=== PATIENT | female | born 1990 | race Caucasian/White ===

== ENCOUNTER 2019-09-28 09:04 | Day surgery (SDC) | payer OTHER, SELFPAY ==
--- NOTE | 2019-09-27 11:26 | PCM.HP.BLA ---
History and Physical Date of Admission: 09/28/19 Marisel Cheney 1990 ? ? REFERRING PHYSICIAN: MD Yadiel ? CHIEF COMPLAINT: Abdominal pain ? HPI: The patient is a 28 year old female presents with right upper quadrant abdominal pain. This has been going on for about two months. Denies fevers. Described as intermittent sharp pains, usually a constant ache. Also accompanied with nausea, but denies emesis. Denies constipation or diarrhea. Denies jaundice or icterus. US RUQ 08/19/19 - hepatic steatosis, no gallbladder stones HIDA scan 09/07/19 - EF 30% ? ? PAST MEDICAL HISTORY ? Anxiety, generalized 07/09/2018 ? Depression 07/09/2018 ? Migraine ? ? Mitral valve prolapse 07/09/2018 ? PAST SURGICAL HISTORY ? PAST SURGICAL HISTORY OF ? 2009 ? right shoulder surgery ? PAST SURGICAL HISTORY OF ? 2000 ? T&A ? RHINOPLASTY ? 2008 ? ? Current Outpatient Medications ? ondansetron (ZOFRAN) 4 mg tablet Take 1 tablet by mouth every 8 hours as needed for Nausea/Vomiting. ? dicyclomine (BENTYL) 10 mg capsule Take 1 capsule by mouth before meals and at bedtime. ? Omeprazole Magnesium (PRILOSEC OTC) 20 mg tablet Take 1 tablet by mouth twice daily. 1/2 hr before meal. ? sertraline (ZOLOFT) 50 mg tablet Take 1.5 tablets by mouth once daily. ? norgestimate 0.25 mg-ethinyl estradiol 35 mcg (SPRINTEC) 0.25-35 mg-mcg per tablet Take 1 tablet by mouth once ? norethindrone (AYGESTIN) 5 mg tablet Take 1 tablet by mouth twice daily. (Patient not taking: Reported on 08/07/2019 ? ibuprofen (MOTRIN) 800 mg tablet Take 1 tablet by mouth every 8 hours as needed. FOR PAIN. ? ? ALLERGIES: Seasonal Allergies ? PERSONAL HISTORY: Tobacco Use ? Smoking status: Never Smoker ? Smokeless tobacco: Never Used Substance Use Topics ? Alcohol use: Yes ? ? Frequency: Monthly or less ? ? Drinks per session: 1 or 2 ? ? Binge frequency: Less than monthly ? ? Comment: recreational ? Drug use: No ? FAMILY HISTORY ? other (mitral valve prolapse) Mother ? ? Diabetes Father ? ? Diabetes Maternal Grandfather ? ? Heart disease Paternal Grandmother ? ? Heart disease Paternal Grandfather ? ? ? REVIEW OF SYSTEMS: General - denies fevers, denies anorexia, denies weight loss Cardiovascular - has occasional chest pain with MVP, denies history of [place] Pulmonary - denies shortness of breath, denies coughing up blood Gastrointestinal - denies abdominal pain, denies hematemesis, denies blood in stools Neurological - has migraine headaches, denies seizures, denies chronic numbness/weakness of extremities Genitourinary - denies burning with urination, denies blood in urine Hematological - denies spontaneous/prolonged bleeding Skin - denies nonhealing skin wounds Musculoskeletal - denies chronic joint/back pain Endocrine - denies diabetes, no thyroid problems Psychological ? denies hallucinations ? PHYSICAL EXAMINATION: General: The patient is 28 year old female, well nourished, well hydrated in no acute distress. The patient is oriented to time, place, and person. VITALS: Blood pressure 106/64, pulse 101, temperature 36.3 ?C (97.4 ?F), height 167.6 cm (5' 6), weight 113.6 kg (250 lb 6.4 oz), SpO2 100 %. Body mass index is 40.42 kg/m?. Head ? Normocephalic. EOM intact with sclera clear and no icterus noted. Mouth with mucus membranes moist. Neck - supple with no jugular venous distention noted. Trachea is midline. No masses noted. Lungs ? clear to auscultation.. Normal breath sounds. No rales/rhonchi/wheezing noted. No labored breathing noted, such as retractions. No cough heard. Heart ? normal S1 and S2 auscultated. No rubs/clicks/murmurs noted. Regular rate. Abdomen ? soft and benign. Normal bowel sounds. Difficult to determine if any masses or organomegaly due to body habitus. Extremities ? no calf tenderness noted. No pitting edema noted. Skin ? normal skin integrity. Neurological ? gait normal, no focal deficits noted. Psych ? calm and appropriate, RADIOLOGIC STUDIES: As Noted ? ? IMPRESSION: right upper quadrant abdominal pain, abnormal HIDA scan ? PLAN: I have discussed the above with the patient. I have offered laparoscopic cholecystectomy, possible cholangiograms I have explained the procedure to the patient. I have counseled the patient as to the risks of the procedure, including but not limited to: infection, bleeding, injury to any blood vessels/nerves, scar tissue, injury to any intraabdominal organs, injury to bowel/bladder, injury to the common bile duct/biliary tree, bile leakage, intraabdominal abscess/bleeding, hernias at incisional sites, wound infections, complications of anesthesia, etc. ? the patient understands. I have also explained that removal of the gallbladder may not guarantee alleviation of the patient's symptoms. The patient wishes to proceed. I have answered all questions to the patient?s satisfaction and the patient has no further questions. . Diagnoses: (R10.11) Right upper quadrant abdominal pain (primary encounter diagnosis) (R94.8) Abnormal biliary HIDA scan (E66.01) Morbid obesity (HCC) Return to Clinic: The patient is instructed to follow-up with me after the procedure. ? ? ? Daria Haro MD
[2019-09-28] VITALS (8 sets, daily range): BP systolic 99–132; BP diastolic 57–78; PULSE 61–87; RESP 16–20; TEMP 36.3–36.6; O2SAT 93–100; BMI 40.4
[2019-09-28 09:49] LABS: Hemoglobin 14.6 g/dL (12.0-15.0); Mean Corp Hgb Conc 33.2 g/dL (32-36); Mean Corpuscular Hgb 29.6 pg (27.0-32.0); Mean Corpuscular Volume 89.1 fL (81-99); Mean Platelet Vol. 9.6 fl (6.2-12.0); Platelet Count 302 K/mm3 (150-450); RBC Distribution Width CV 12.3 % (11.6-14.6); RBC Distribution Width SD 40.3 fl (35.1-43.9); Red Blood Count 4.94 M/mm3 (4.2-5.4); White Blood Count 7.7 K/mm3 (4.4-11.0)
[2019-09-28 10:02] LABS: Internal QC Validated? YES +Cl - CLEAR BKGD; Pregnancy, Urine Negative Negative
--- NOTE | 2019-09-28 10:05 | EKG12_ITS ---
Test Reason : PRE-OP Blood Pressure : / mmHG Vent. Rate : 065 BPM Atrial Rate : 065 BPM P-R Int : 142 ms QRS Dur : 076 ms QT Int : 384 ms P-R-T Axes : 061 018 -41 degrees QTc Int : 399 ms Normal sinus rhythm with sinus arrhythmia ST & T wave abnormality, consider inferior ischemia Abnormal ECG No previous ECGs available Confirmed by RADHA FERGUSON, MARYANN ([id number]), assistant production editor SAÚL FREITAS ([id number]) on 09/29/2019 10:42:28 AM Referred By: Daria Haro Confirmed By:MARYANN GARCIA MD
[2019-09-28] MEDS: Lactated Ringers 1,000 ML 75 ML IV ×2 (10:07→11:20)
[2019-09-28 10:13] LABS: Anion Gap 7 (5-15); BUN 9 mg/dL (7-18); BUN/Creat Ratio 10.3 RATIO (10-20); Calcium,Total 8.7 mg/dL (8.5-10.1); Chloride 108 mmol/L (98-107); Creatinine, Serum 0.87 mg/dL (0.55-1.02); EST Glomerular Filtration Rate 83 mL/min (>60); Est Glom Filt Rate - Afr Amer 100 mL/min (>60); Estimated Creatinine Clearance 91.73 ml/min; Glucose 91 mg/dL (74-106); Potassium 4.2 mmol/L (3.5-5.1); Sodium Level 137 mmol/L (136-145)
--- NOTE | 2019-09-28 10:19 | DCINST_ITS ---
Discharge Diet: No Restrictions - avoid carbonated beverages for a few days Discharge Activity: Return to Normal Activity, May not drive while taking narcotic pain medications. Lifting Restrictions: no lifting greater than 20 pounds for 2 weeks Additional Activity Instructions:: Leave dressings in place. May get wet in the shower. Do not soak - no tub baths/swimming Call your doctor if your incision/area has: Continuous Slow Oozing, Foul Smelling Discharge Call your doctor if you observe: Fever of 101 or Higher Allergies/Adverse Reactions: Allergies No Known Allergies Allergy (Verified 09/25/19 10:37) Medications to take at Discharge Dicyclomine HCl [Bentyl] 10 mg PO ACHS 09/25/19 Norgestimate-Ethinyl Estradiol [Sprintec 28 Day Tablet] 1 ea PO DAILY 09/25/19 Omeprazole Magnesium [Prilosec Otc] 20 mg PO DAILY 09/25/19 Ondansetron HCl [Zofran] 4 mg PO PRN PRN 09/25/19 Sertraline HCl [Zoloft] 50 mg PO QHS 09/25/19 Primary Care Physician: Care Physician,No Primary [Primary Care Provider] - Test Results: Test results from this visit will be discussed in further detail at your follow- up appointment, if applicable. Please Follow Up With: Daria Haro MD - call When: to be seen in 10-14 days, please call for date and time, thank you
--- NOTE | 2019-09-28 10:27 | PCM.OPRPT ---
Report of Operation Date of Procedure: 09/28/19 Pre-Operative Diagnosis: right upper quadrant abdominal pain, abnormal HIDA scan Post-Operative Diagnosis: same Surgery/Procedure Performed:: laparoscopic cholecystectomy with cholangiograms Description of Surgical Findings:: IOC - joel, probable fatty infiltration of liver hand drawer in helper: Jose Walls Type of Anesthesia:: General Anesthesiologist: Warren Huff Specimen's removed: gallbladder and contents Estimated Blood Loss (mL): < 10 ml Fluids Replaced: 1000 ml RL Description of Procedure: After informed consent was given, the patient was brought to the Operating Room. Appropriate time out protocol was followed. She was placed in the supine position. The patient was then placed under general endotracheal anesthesia. The abdomen was then prepped with a sterile surgical skin preparation and sterile surgical drapes were placed. An area superior to the umbilical dimple was then made with a 15 blade scalpel. The anterior abdominal wall was elevated and a Veress needle was carefully inserted into the intraabdominal cavity. It was checked to be in the proper position with a normal saline drop test. A CO2 pneumoperitoneum was then created. Once this was achieved, then the Veress needle was removed and an 11mm trocar was placed in its stead. A 10mm laparoscope was then inserted into the trocar and careful attention was directed to the intraabdominal contents. There was no evidence of injury to any intraabdominal organs from insertion of the Veress needle or the trocar. Under direct visualization, a 5mm subxiphoid trocar and two lateral 5mm right subcostal trocars were placed. The skin and subcutaneous tissues at these sites were infiltrated with 0.25% marcaine with epinephrine prior to placement of these trocars. Attention was then directed to the right upper quadrant of the abdomen. The liver had blunt edges and there was visual evidence of fatty infiltration. Graspers were placed in the lateral trocars to grasp the distal aspect of the gallbladder and direct it cephalad and to grasp the gallbladder at Neri?s pouch and direct it laterally. Dissection then began on the proximal gallbladder continuing down to the area of the triangle of Calot to bluntly dissect out the cystic duct. The neck of the gallbladder was identified and blunt dissection continued to dissect out a segment of the cystic duct. A clip was then placed on the neck of the gallbladder. A small ductotomy was then made. A Ranfac catheter was brought in through a separate skin incision and placed into the cystic duct. An intraoperative cholangiogram was performed under fluoroscopy. The xray revealed no lesions in the common bile duct, arborization of the biliary tree, and good flow into the duodenum. The Ranfac catheter was then removed and two clips were placed proximal to the ductotomy and the cystic duct was then transected. The cystic artery was visualized and bluntly isolated and then two clips were placed proximally and one clip distally and then it was transected between the proximal and distal clips. The gallbladder was then from the liver bed using electrocautery and thus able to be brought out of the umbilical port via an Endobag. It was then forwarded to pathology for analysis. The liver bed was carefully examined. There was no evidence of bile leakage or bleeding. The cystic duct stump and cystic artery stump had their clips intact and there was no evidence of bile leakage or bleeding. The remainder of the abdomen was grossly normal. The CO2 was released and all trocars removed intact. The periumbilical fascia was approximated with a [id number] 0 vicryl suture. All skin incision were closed with 4-0 monocryl in a subdermal fashion. Cavilol and Steristrips were used to reinforce the skin closure. Sterile dressings were applied to all wounds. The patient was extubated and brought to the Recovery Room in stable condition. - Complications none noted - Admit VTE Documentation VTE Present on Admission: Yes VTE Mechan Device Prophylaxis: SCD's
--- NOTE | 2019-09-28 10:35 | RAD_ITS ---
STUDY: INTRAOPERATIVE CHOLANGIOGRAM. REASON FOR EXAM: Female, 28 years old. RIGHT UPPER QUADRANT ABDOMINAL PAIN, ABNORMAL HIDA SCAN, CHOLANGIOGRAM CLEAR PER SURGEON. FLUOROSCOPY TIME (if supplied): ( 5 seconds ) minutes/seconds TECHNIQUE: Intraoperative cholangiogram was performed by the surgeon. Imaging was submitted. COMPARISON: None. FINDINGS: The common bile duct is not dilated. No intraluminal filling defect is seen. There is free flow of contrast into the duodenum. RAD/Cholangiogram/ O R,Initial IMPRESSION: Unremarkable intraoperative cholangiogram. Electronically Signed: Lokesh Michelle, at 15:48 EST , Service support ,
--- NOTE | 2019-09-28 10:35 | GALL_PTH ---
PATIENT: AZEEM YUNG LOC: [facility] [place] U#:[id number] AGE/SX: 28/F ROOM: RE09/28/[address]: Dr. Daria Haro MD : 1990 BED: DIS: 09/28/2019 SPEC #: [id number] RECD: 09/28/19 12:41 STATUS: KODY REShelly #: [id number] ERASMO: 09/28/19 10:[address]: Daria Haro DEPT: SURGICAL PATHOLOGY RECD BY: Adrián Arrington ENTERED: 09/28/19 13:04 SP TYPE: TODD TRUJILLO DR: No Primary Care Phys Tissues: Gallbladder, NOS Procedures: Surgery Specimen Level III HEADER OPERATION: Laparoscopic cholecystectomy with IOC PRE-OP DIAGNOSIS: Right upper quadrant abdominal pain; abnormal HIDA scan TISSUE SUBMITTED: Gallbladder MICROSCOPIC DIAGNOSIS Gallbladder, cholecystectomy: Cholesterolosis and chronic cholecystitis. AM:[place] 09/29/19 MICROSCOPIC DESCRIPTION Slides are reviewed. GROSS DESCRIPTION Received is one container labeled with the patient's name and designated gallbladder. The specimen consists of a gallbladder measuring 6 x 3.5 x 1 cm. The external surface is smooth and glistening. Focally, it is granular, hemorrhagic and contains cautery artifact. The lumen of the gallbladder contains a small amount of yellow mucoid bile. No calculi are identified. The mucosa is bile-stained and without any mass lesions. The gallbladder wall averages 0.2 cm in thickness and has a lucio yellow discoloration and is free of mass lesions. Clinical Nursing Director sections of the gallbladder and the cystic duct at margin of resection are submitted in one cassette. / AM:[place] 09/28/19 TC:3 CPT: 94824
[2019-09-28] MEDS: Bupiv/Epi 0.25% 30 ML Vial (10:40)
[2019-09-28] MEDS: HYDROcodone Bitartrate/Apap 5/325 Tablet PO (13:07)
== END 2019-09-28 14:52 | disposition home or self-care (01) ==
LOC: SDC 09:05 → AC 09:07
PROVIDERS: Anesthesiology; Referring Provider Surgery; Visit Provider Surgery
PROC: (CPT 47610; principal; 2019-09-28 10:15)
DX: K81.1 Chronic cholecystitis (principal); E66.01 Morbid (severe) obesity due to excess calories; Z68.41 Body mass index [BMI] 40.0-44.9, adult; F41.9 Anxiety disorder, unspecified; F32.9 Major depressive disorder, single episode, unspecified; Z79.899 Other long term (current) drug therapy
CPT/HCPCS: 00790; 47563; 36415; 74300; 76000; 80048; 81025; 85027; 88304; 93005; J7120; J2405